=== PATIENT | male | born 1950 | race Caucasian/White ===

== ENCOUNTER 2017-09-27 15:32 | Inpatient (IN) | payer OTHER, MEDICARE ==
[~2017-09-27] VITALS: Ht 177.8 cm; Wt 81.0 kg
[2017-09-27] VITALS (8 sets, daily range): BP systolic 170–227; BP diastolic 104–127
[2017-09-27 16:24] LABS: BASO # 0.1 10*3/uL (0.0-0.1); BASO % 0.6 % (0.0-1.0); EOS # 0.1 10*3/uL (0.0-0.4); EOS % 0.9 % (1.0-4.0); HEMATOCRIT 48.1 % (42.0-52.0); HEMOGLOBIN 16.6 g/dl (14.0-18.0); LYMPH # 1.4 10*3/uL (1.3-4.4); MEAN CELL VOLUME 90.2 fl (80.0-94.0); MEAN CORPUSCULAR HGB 31.1 pg (27.0-31.0); MEAN CORPUSCULAR HGB CONC 34.5 g/dl (33.0-37.0); MEAN PLATELET VOLUME 11.7 fl (9.6-12.3); MONO # 0.6 10*3/uL (0.1-1.0); MONO % 6.5 % (3.0-9.0); NEUT # 6.5 10*3/uL (2.3-7.9); NEUT % 75.7 % (47.0-73.0); PLATELET COUNT AUTOMATED 143 10*3/uL (130-400); RED BLOOD COUNT 5.33 10*6/uL (4.50-5.90); RED CELL DISTRI WIDTH 12.8 % (0-14.5); WHITE BLOOD COUNT 8.6 10*3/uL (4.8-10.8)
[2017-09-27 16:41] LABS: ALBUMIN 4.2 gm/dl (3.1-4.5); ALKALINE PHOSPHATASE 105 U/L (45-117); BUN 15 mg/dl (7-24); CHLORIDE 106 mmol/L (98-107); CREATININE 1.06 mg/dL (0.70-1.30); POTASSIUM 4.1 mmol/L (3.5-5.1); SGOT/AST 28 IU/L (3-35); SGPT/ALT 34 U/L (12-78); SODIUM 141 mmol/L (136-145); TOTAL PROTEIN 7.3 gm/dL (6.4-8.2)
[2017-09-27 16:47] LABS: TROPONIN I < 0.015 ng/ml (<0.045)
[2017-09-27 18:19] LABS: BILIRUBIN NEGATIVE (NEGATIVE); BLOOD NEGATIVE (NEGATIVE); CLARITY CLEAR (CLEAR); COLOR YELLOW (YELLOW); GLUCOSE NEGATIVE (NEGATIVE); KETONE 2+ (NEGATIVE); LEUKO ESTERASE NEGATIVE (NEGATIVE); NITRITE NEGATIVE (NEGATIVE); PH 5.5 (5.0-9.0); SPECIFIC GRAVITY <= 1.005 (1.005-1.030); UROBILINOGEN 0.2 E.U./dl (0.2-1.0)
[2017-09-27 18:32] LABS: WBC 0-2 wbc/hpf (0-5)
--- NOTE | 2017-09-27 21:00 | NUR ---
A 67, admitted to , under the services of NANCY Oviedo DO with a diagnosis of ACCELERATED HTN. Chief complaint is HIGH BLOOD PRESSURE. Patient arrived via bed from ER. Monitor applied. Initial assessment completed. Vital signs taken and recorded. NANCY OVIEDO DO notified of admission to the unit. Orders received. See assessment for past medical history, medications and allergies. Patient and/or family oriented to unit. [facility] visitation policy reviewed. Clothing/patient valuable form completed. PHU BELL
[2017-09-27] MEDS ORDERED: ASPIRIN CHEWABL81 MG PO (21:52)
[2017-09-27] MEDS ORDERED: CLOPIDOGREL75 MG PO (21:52)
[2017-09-27] MEDS ORDERED: PRINIVIL10 MG PO (21:53)
[2017-09-27] MEDS ORDERED: METOPROLOL TART50 M1 PO (21:53)
[2017-09-27] MEDS ORDERED: NITROGLYCERIN0.4 MG SL (21:54)
[2017-09-27] MEDS ORDERED: GERITOL COMPLE1 EACH PO (21:55)
[2017-09-27] MEDS ORDERED: SIMVASTATIN80 MG PO (21:55)
--- NOTE | 2017-09-27 21:58 | NUR ---
MED REC UPDATED PER LIST PROVIDED BY THE [facility]
[2017-09-28] VITALS: BP 142/84; BP 172/107
[2017-09-28 06:05] VITALS: BP 138/94
--- NOTE | 2017-09-28 06:29 | NUR ---
CONDUCTED BLADDER SCAN POST VOIDING PER INSTRUCTION. PT WAS FOUND TO HAVE 12ML OF URINE LEFT IN BLADDER. Dillon DIAZ WAS NOTIFIED.
[2017-09-28 07:02] LABS: BASO # 0.1 10*3/uL (0.0-0.1); BASO % 0.6 % (0.0-1.0); EOS # 0.1 10*3/uL (0.0-0.4); EOS % 1.4 % (1.0-4.0); HEMOGLOBIN 15.7 g/dl (14.0-18.0); LYMPH % 12.6 % (27.0-41.0); MEAN CELL VOLUME 90.7 fl (80.0-94.0); MEAN CORPUSCULAR HGB 32.4 pg (27.0-31.0); MEAN CORPUSCULAR HGB CONC 35.7 g/dl (33.0-37.0); MEAN PLATELET VOLUME 12.3 fl (9.6-12.3); MONO # 0.7 10*3/uL (0.1-1.0); NEUT # 6.1 10*3/uL (2.3-7.9); NEUT % 76.1 % (47.0-73.0); PLATELET COUNT AUTOMATED 136 10*3/uL (130-400); RED BLOOD COUNT 4.85 10*6/uL (4.50-5.90); RED CELL DISTRI WIDTH 13.1 % (0-14.5)
[2017-09-28 07:33] LABS: BUN 14 mg/dl (7-24); CHLORIDE 108 mmol/L (98-107); CHOLESTEROL 133 mg/dL (<200); CREATININE 0.95 mg/dL (0.70-1.30); HDL CHOLESTEROL 50 mg/dl (40-60); LDL CHOLESTEROL 59 mg/dL (9-159); PHOSPHOROUS 2.9 mg/dL (2.5-4.9); POTASSIUM 3.7 mmol/L (3.5-5.1); SODIUM 141 mmol/L (136-145); TRIGLYCERIDES 118 mg/dl (<150); VLDL CHOLESTEROL 24 mg/dL (6-40)
[2017-09-28 08:00] VITALS: BP 180/106
--- NOTE | 2017-09-28 09:00 | NUR ---
Nickel Operator in to talk to patient. Patient states lives at home with . There are few steps in the home. Physician: Pharmacy: Home health services: none Patient's level of ADLs: INDEPENDENT Patient has working utilities: all working DME: none Follow-up physician's appointment after d/c: will be made by hospitalist nurse director upon discharge Does patient want to access PORTAL?: no Discharge plan discussed with patient, patient lives at home, is independent in adls and ambulation, patient states he will be going back home and denies any home needs. CAROLYN MONACO
[2017-09-28 09:04] LABS: VITAMIN D, 25-HYDROXY 50.3 ng/mL (30-100)
[2017-09-28 12:00] VITALS: BP 186/100
--- NOTE | 2017-09-28 12:05 | NUR ---
called Kirk Eduardo, left patient's information on secure voicemail, will await a return call from assigned caser shoe [employer]
[2017-09-28 16:00] VITALS: BP 170/104
--- NOTE | 2017-09-28 17:17 | NUR ---
DR. FAIRBANKS CALLED AND NOTIFIED OF BP OF 170/104. NO ORDERS GIVEN AT THIS TIME.
[2017-09-28 20:00] VITALS: BP 160/101
[2017-09-29] VITALS: BP 124/88
--- NOTE | 2017-09-29 04:00 | NUR ---
CALLED DR. WHEELER AT THIS TIME WITH PATIENT COMPLAINTS OF A HEADACHE AND REQUESTING BABY ASPIRIN. PATIENT REFUSES TYLENOL. STATED TO DR. WHEELER THAT PATIENT HAD BABY ASPIRIN AT 1000 THE PREVIOUS DAY, SHE STATED IT WAS OK TO GIVE HIM ANOTHER DOSE
[2017-09-29 08:00] VITALS: BP 116/80
--- NOTE | 2017-09-29 09:00 | NUR ---
case management visits with patient, patient denies any home needs
[2017-09-29 12:00] VITALS: BP 130/90
[2017-09-29] MEDS ORDERED: CARVEDILOL25 MG PO (13:08)
[2017-09-29] MEDS ORDERED: LISINOPRIL20 MG PO (13:08)
--- NOTE | 2017-09-29 13:44 | NUR ---
Discharge instructions reviewed with patient/family. Patient receptive and verbalizes understanding. Follow-up care arranged. Written instructions given to patient/family. DEMETRICE GUEVARA
== END 2017-09-29 13:44 | disposition home or self-care (01) | DRG 305 ==
LOC: ED 15:32 → 5E 20:25 → EDHOLD 20:25 → 5E 20:33
PROVIDERS: Internal Medicine; Physician Assistant; ADMIT Internal Medicine
DX: I16.0 Hypertensive urgency (principal); D72.825 Bandemia; I25.10 Atherosclerotic heart disease of native coronary artery without angina pectoris; I10 Essential (primary) hypertension; R82.4 Acetonuria; R73.9 Hyperglycemia, unspecified; E78.00 Pure hypercholesterolemia, unspecified; F41.1 Generalized anxiety disorder; E53.8 Deficiency of other specified B group vitamins; E66.3 Overweight; F21 Schizotypal disorder; E55.9 Vitamin D deficiency, unspecified; J30.9 Allergic rhinitis, unspecified; L98.9 Disorder of the skin and subcutaneous tissue, unspecified; Z79.899 Other long term (current) drug therapy; Z79.82 Long term (current) use of aspirin; Z90.89 Acquired absence of other organs; Z98.61 Coronary angioplasty status; Z87.891 Personal history of nicotine dependence; Z82.49 Family history of ischemic heart disease and other diseases of the circulatory system; Z83.6 Family history of other diseases of the respiratory system; I25.2 Old myocardial infarction; Z83.1 Family history of other infectious and parasitic diseases; Z68.25 Body mass index [BMI] 25.0-25.9, adult

== ENCOUNTER → 2019-04-03 | Outpatient (CLI) | payer OTHER ==
[~2019-04-03] MED LIST: ASPIRIN CHEWABL81 MG PO; CARVEDILOL25 MG PO; CLOPIDOGREL75 MG PO; GERITOL COMPLE1 EACH PO; LISINOPRIL20 MG PO; METOPROLOL TART50 M1 PO; NITROGLYCERIN0.4 MG SL; PRINIVIL10 MG PO; SIMVASTATIN80 MG PO
== END | disposition home or self-care (01) ==
LOC: RAD 14:06
DX: M19.072 Primary osteoarthritis, left ankle and foot (principal); M25.475 Effusion, left foot; M77.8 Other enthesopathies, not elsewhere classified

== ENCOUNTER → 2022-12-29 | Outpatient (CLI) | payer OTHER | END | disposition home or self-care (01) | LOC: CARD 12:55 | PROVIDERS: ATTEND Family Medicine | DX: I51.7 Cardiomegaly (principal) ==

== ENCOUNTER 2024-06-17 15:25 | Inpatient (IN) | payer MEDICARE, OTHER ==
[~2024-06-17] VITALS: Ht 177.8 cm; Wt 79.4 kg
[2024-06-17 15:37] VITALS: BP 151/115
[2024-06-17 16:00] LABS: BASO % 0.4 % (0.0-1.0); EOS # 0.1 10*3/uL (0.0-0.4); EOS % 0.8 % (1.0-4.0); HEMATOCRIT 51.7 % (42.0-52.0); LYMPH # 1.3 10*3/uL (1.3-4.4); LYMPH % 14.9 % (27.0-41.0); MEAN CELL VOLUME 89.8 fl (80.0-94.0); MEAN CORPUSCULAR HGB 31.6 pg (27.0-31.0); MEAN CORPUSCULAR HGB CONC 35.2 g/dl (33.0-37.0); MEAN PLATELET VOLUME 11.4 fl (9.6-12.3); MONO # 0.9 10*3/uL (0.1-1.0); MONO % 9.4 % (3.0-9.0); NEUT # 6.7 10*3/uL (2.3-7.9); NEUT % 74.2 % (47.0-73.0); PLATELET COUNT AUTOMATED 185 10*3/uL (130-400); RED BLOOD COUNT 5.76 10*6/uL (4.50-5.90); RED CELL DISTRI WIDTH 12.8 % (0-14.5)
[2024-06-17] MEDS ORDERED: Metoprolol Tartrate 5 MG/5 ML VIAL IV ONE (16:10)
[2024-06-17 16:21] LABS: ALKALINE PHOSPHATASE 90 U/L (46-116); BUN 14 mg/dl (9-23); CHLORIDE 103 mmol/L (98-107); POTASSIUM 3.7 mmol/L (3.4-5.1); SGPT/ALT 31 U/L (5-49)
[2024-06-17] MEDS ORDERED: LISINOPRIL40 MG PO (18:10)
[2024-06-17] MEDS ORDERED: SIMVASTATIN40 MG PO (18:12)
[2024-06-17] MEDS ORDERED: CHLORTHALIDONE25 MG PO (18:12)
[2024-06-17] MEDS ORDERED: TOPROL XL25 MG PO (18:13)
[2024-06-17] MEDS ORDERED: ACETAMINOPHEN 325 MG TAB PO PRN (18:15)
[2024-06-17] MEDS ORDERED: BISACODYL 5 MG TAB PO PRN (18:15)
[2024-06-17] MEDS ORDERED: ACETAMINOPHEN 650 MG SUPP R PRN (18:15)
[2024-06-17] MEDS ORDERED: BISACODYL 10 MG SUPP R PRN (18:15)
[2024-06-17] MEDS ORDERED: Magnesium Hydroxide 30 ML UDC PO PRN (18:15)
[2024-06-17] MEDS ORDERED: LISINOPRIL 20 MG TAB ONE (21:56)
[2024-06-17] MEDS ORDERED: ATORVASTATIN CALCIUM 20 MG TAB PO SCH (22:00)
[2024-06-17] MEDS ORDERED: LISINOPRIL 40 MG TAB PO SCH (22:00)
[2024-06-17] MEDS ORDERED: Enoxaparin Sodium 80 MG/0.8 ML SYR SC SCH (22:00)
[2024-06-17] MEDS ORDERED: METOPROLOL SUCCINATE XR 25 MG TAB PO SCH (22:00)
[2024-06-17 23:14] VITALS: BP 122/80
[2024-06-18 03:47] VITALS: BP 160/97
[2024-06-18 06:34] LABS: BASO % 0.6 % (0.0-1.0); EOS # 0.1 10*3/uL (0.0-0.4); EOS % 1.2 % (1.0-4.0); HEMATOCRIT 47.4 % (42.0-52.0); LYMPH # 0.9 10*3/uL (1.3-4.4); LYMPH % 13.6 % (27.0-41.0); MEAN CELL VOLUME 89.4 fl (80.0-94.0); MEAN CORPUSCULAR HGB 31.9 pg (27.0-31.0); MEAN CORPUSCULAR HGB CONC 35.7 g/dl (33.0-37.0); MEAN PLATELET VOLUME 11.5 fl (9.6-12.3); MONO # 0.7 10*3/uL (0.1-1.0); MONO % 10.1 % (3.0-9.0); NEUT # 5.1 10*3/uL (2.3-7.9); NEUT % 73.9 % (47.0-73.0); PLATELET COUNT AUTOMATED 143 10*3/uL (130-400); RED CELL DISTRI WIDTH 13.2 % (0-14.5); WHITE BLOOD COUNT 6.9 10*3/uL (4.8-10.8)
[2024-06-18 06:56] LABS: ALKALINE PHOSPHATASE 78 U/L (46-116); BUN 16 mg/dl (9-23); CHLORIDE 103 mmol/L (98-107); CHOLESTEROL 143 mg/dL (<200); FREE T4 1.67 ng/dl (0.89-1.76); LDL CHOLESTEROL 60 mg/dL (9-159); POTASSIUM 3.9 mmol/L (3.4-5.1); SGPT/ALT 28 U/L (5-49); TOTAL PROTEIN 6.3 gm/dL (6.0-8.0); TRIGLYCERIDES 162 mg/dl (<150)
[2024-06-18 08:00] VITALS: BP 146/98
[2024-06-18] MEDS ORDERED: SODIUM CHLORIDE 0.9% 1,000 ML IV ONE (08:45)
[2024-06-18] MEDS ORDERED: ASPIRIN, CHEWABLE 81 MG TAB PO SCH (10:00)
[2024-06-18] MEDS ORDERED: CHLORTHALIDONE 25 MG TAB PO SCH (10:00)
[2024-06-18 12:45] VITALS: BP 136/91
[2024-06-18] MEDS ORDERED: ELIQUIS5 M1 PO ×2 (15:32→16:08)
== END 2024-06-18 16:35 | disposition home or self-care (01) | DRG 308 ==
LOC: ED 15:25 → EDHOLD 17:37 → 4E 06-18 14:57 → EDHOLD 06-18 16:26
PROVIDERS: Internal Medicine; ADMIT Family Medicine; ATTEND Family Medicine
DX: I48.0 Paroxysmal atrial fibrillation (principal); N17.0 Acute kidney failure with tubular necrosis; E53.8 Deficiency of other specified B group vitamins; I25.10 Atherosclerotic heart disease of native coronary artery without angina pectoris; R73.9 Hyperglycemia, unspecified; D75.1 Secondary polycythemia; E78.00 Pure hypercholesterolemia, unspecified; F41.9 Anxiety disorder, unspecified; E78.1 Pure hyperglyceridemia; I48.92 Unspecified atrial flutter; I10 Essential (primary) hypertension; E55.9 Vitamin D deficiency, unspecified; I25.2 Old myocardial infarction; Z82.49 Family history of ischemic heart disease and other diseases of the circulatory system; Z95.5 Presence of coronary angioplasty implant and graft; Z87.891 Personal history of nicotine dependence; Z79.82 Long term (current) use of aspirin; Z79.899 Other long term (current) drug therapy